=== PATIENT | female | born 1985 | race Two or more races ===

== ENCOUNTER 2018-05-05 19:53 | Inpatient (IN) | payer MEDICAID ==
[2018-05-05 19:53] VITALS: BMI 32.5
--- NOTE | 2018-05-05 20:36 | C.PDOC ---
History Of Present Illness 32 year old female presents to the ED requesting detox for alcohol abuse and ambien. Patient states her last drink was a couple of hours ago. Patient denies SI/HI, hallucinations, trauma, injury, fall. Time Seen by Provider: 05/05/18 20:36 Chief Complaint (Nursing): Substance Abuse History Per: Patient History/Exam Limitations: intoxication Onset/Duration Of Symptoms: Days Current Symptoms Are (Timing): Still Present Modifying Factor(s): Alcohol, Other (Ambien) Associated Symptoms: denies: Depression, Suicidal Thoughts, Suicidal Plan Recent travel outside of the [place]: No Additional History Per: Patient Past Medical History Reviewed: Historical Data, Nursing Documentation, Vital Signs Vital Signs: Last Vital Signs Temp 99.3 F 05/05/18 20:15 Pulse 103 H 05/05/18 20:15 Resp 20 05/05/18 20:15 BP 139/93 H 05/05/18 20:15 Pulse Ox 99 05/05/18 20:43 - Medical History PMH: No Chronic Diseases Denies: Depression, Pancreatitis, Chronic Kidney Disease Surgical History: Cholecystectomy - [facility] Procedures DRAINAGE OF BACK SUBCU/FASCIA WITH DRAIN DEV, OPEN APPROACH (10/12/16) DRAINAGE OF LEFT HIP MUSCLE WITH DRAIN DEV, OPEN APPROACH (10/12/16) DRAINAGE OF RIGHT HIP MUSCLE WITH DRAIN DEV, OPEN APPROACH (10/12/16) INJECT/INFUSE NEC (09/12/12) PLAIN RADIOGRAPHY OF HEPATOBIL SYS, ALL USING L OSM CONTRAST (11/07/15) RESECTION OF GALLBLADDER, PERCUTANEOUS ENDOSCOPIC APPROACH (11/07/15) TRANSFUSE NONAUT FROZEN PLASMA IN PERIPH VEIN, PERC (10/12/16) TRANSFUSE NONAUT RED BLOOD CELLS IN PERIPH VEIN, PERC (10/12/16) Family History: States: Unknown Family Hx - Social History Hx Tobacco Use: Yes Hx Alcohol Use: Yes Hx Substance Use: No - Immunization History Hx Tetanus Toxoid Vaccination: No Hx Influenza Vaccination: No Hx Pneumococcal Vaccination: No Review Of Systems Constitutional: Negative for: Fever, Chills Cardiovascular: Negative for: Chest Pain Respiratory: Negative for: Cough, Shortness of Breath Gastrointestinal: Negative for: Nausea, Vomiting Skin: Negative for: Rash Neurological: Negative for: Weakness, Numbness Psych: Negative for: Depression, Suicidal ideation Physical Exam - Physical Exam Appears: Non-toxic, No Acute Distress Skin: Warm, Dry Head: Normacephalic Eye(s): bilateral: Normal Inspection Neck: Supple Chest: Symmetrical Cardiovascular: Rhythm Regular Respiratory: No Rales, No Rhonchi, No Wheezing Gastrointestinal/Abdominal: Soft, No Tenderness, No Guarding, No Rebound Back: Normal Inspection Extremity: No Tenderness, No Swelling Extremity: Bilateral: Atraumatic, Normal Color And Temperature, Normal ROM Neurological/Psych: Oriented x3, Normal Speech Gait: Steady ED Course And Treatment - Laboratory Results Result Diagrams: 05/05/18 20:59 05/05/18 20:59 O2 Sat by Pulse Oximetry: 99 (ON RA) Pulse Ox Interpretation: Normal Progress Note: Plan: - Labs. - UA. - Crisis evaluation Disposition Discussed With Dr.: Maicol Galan Comment: accepted the pt onhis service and took over the care at 10:08PM Doctor Will See Patient In The: Hospital Counseled Patient/Family Regarding: Studies Performed, Diagnosis - Disposition Disposition: HOSPITALIZED Disposition Time: 20:36 Condition: FAIR Forms: [facility] ([place]) - POA Present On Arrival: None - Clinical Impression Clinical Impression: Alcohol abuse - Scribe Statement The provider has reviewed the documentation as recorded by the Scribe Jose Bravo All medical record entries made by the Scribe were at my direction and personally dictated by me. I have reviewed the chart and agree that the record accurately reflects my personal performance of the history, physical exam, medical decision making, and the department course for this patient. I have also personally directed, reviewed, and agree with the discharge instructions and disposition. Decision To Admit - Pt Status Changed To: Hospital Disposition Of: Inpatient - Admit Certification Admit to Inpatient:: After my assessment, the patient will require hospitalization for at least two midnights. This is because of the severity of symptoms shown, intensity of services needed, and/or the medical risk in this patient being treated as an outpatient. - InPatient: Physician Admission Certification: I certify that this patient requires 2 or more midnights of care for the following reason:: After my assessment, the patient will require hospitalization for at least two midnights. This is because of the severity of symptoms shown, intensity of services needed, and/or the medical risk in this patient being treated as an outpatient. - . Bed Request Type: Detox Admitting Physician: Maicol Galan Patient Diagnosis: Alcohol abuse, Major depressive disorder, recurrent, unspecified
[2018-05-05 21:07] LABS: BASO % 0.6 % (0.0-2.0); EOS % 0.4 % (0.0-4.0); HEMOGLOBIN 15.1 g/dL (11.0-16.0); LYMPH # 1.8 K/uL (1.0-4.3); MEAN CELL VOLUME 99.8 fL (81.0-99.0); MEAN CORPUSCULAR HGB CONC 35.1 g/dL (33.0-37.0); MEAN PLATELET VOLUME 8.6 fL (7.2-11.7); MONO # 0.4 K/uL (0.0-0.8); MONO % 7.9 % (0.0-10.0); NEUT # 3.2 K/uL (1.8-7.0); NEUT % 58.1 % (50.0-75.0); NRBC % 0.1 % (0.0-2.0); RBC 4.31 Mil/uL (3.80-5.20); RED CELL DISTRIBUTION WIDTH 13.4 % (11.5-14.5); WHITE BLOOD COUNT 5.6 K/uL (4.8-10.8)
[2018-05-05 21:10] LABS: HCG,QUALITATIVE URINE NEGATIVE (NEGATIVE)
[2018-05-05 21:22] LABS: ALB/GLOB RATIO 1.3 (1.0-2.1); ALBUMIN 4.8 g/dL (3.5-5.0); ALT/SGPT 90 U/L (9-52); AST/SGOT 140 U/L (14-36); BLOOD UREA NITROGEN 20 mg/dL (7-17); CALCIUM 10.2 mg/dl (8.6-10.4); GFR NON-AFRICAN AMERICAN > 60
[2018-05-05 21:24] LABS: SQUAMOUS EPITHIAL 12 /hpf (0-5); URINE BACTERIA MANY (<OCC); URINE BILIRUBIN 1+ (NEGATIVE); URINE BLOOD 3+ (NEGATIVE); URINE CLARITY Hazy (Clear); URINE COLOR Amber (YELLOW); URINE GLUCOSE (UA) NORMAL (Normal); URINE LEUKOCYTE ESTERASE 1+ Leu/uL (Negative); URINE PROTEIN 2+ mg/dL (NEGATIVE)
[2018-05-05 21:27] LABS: BARBITURATES, UR NEGATIVE (NEGATIVE); BENZODIAZEPINES, UR NEGATIVE (NEGATIVE); OPIATES, UR NEGATIVE (NEGATIVE); PHENCYCLIDINE, UR NEGATIVE (NEGATIVE)
--- NOTE | 2018-05-05 22:35 | PCM.BM ---
<Tino Velasco - Last Filed: 05/05/18 22:33> Treatment Plan Problems - Problems identified on initial assessmt potential for alcohol withdrawal Date Initiated: 05/05/18 Time Initiated: 22:34 Status: Active Treatment assets and liabiliti Patient Liabilities: substance abuse - Milieu Protocol Maintain good personal hygiene: daily Encourage regular showers, daily Remind patient to perform daily oral care, daily Assist patient to perform ADL's Conduct patient checks and document Observation sheet: Q15 minutes Maintain personal safety: every shift Educate patient to report safety concerns to staff, every shift Monitor environment for contraband/sharps Medication safety: Monitor for expected outcome, potential side effects: every shift, Assess barriers to learning: every shift, Assess readiness for medication education: every shift <Margarito Jiménez - Last Filed: 05/06/18 10:36> - Diagnosis (1) Alcohol use disorder, severe, dependence Status: Acute Interventions: 05/06/18 10:37 * Assess 7x/week regarding severity of withdrawal * Educate regarding risks, benefits, side effects and alternatives of medications * Use Motivational Interviewing for abstinence * Use CBT for relapse prevention * Medication management for withdrawal symptoms * Encourage medication assisted treatment * (2) Major depressive disorder, recurrent, unspecified Status: Acute Interventions: 05/06/18 10:37 * Assess/adjust medications daily and /or as needed * See patient on an individual basis 7x/week to assess symptoms of depression * Monitor for side effects & effectiveness of medications * <Amee Reynolds - Last Filed: 05/06/18 11:07> Family Contact Family involvement: Famliy/SO not involved - Goals for Treatment Patient goals for treatment: Complete detox and transition to inpatient rehab. Discharge/Continuing Care - Education Needs Education Needs: Patient Medication, Patient Diagnosis/Disease Process, Patient Coping Skills, Patient Anger Management skills, Patient Placement options, Patient Community resources - Discharge Discharge Criteria: No longer exhibiting s/s of withdrawal, Reduction of target symptoms Discharge to:: Substance Abuse Rehab - Treatment Team Participation Patient/Family/SO Statement: 05/06/18 11:06 "I need to go to rehab from here." Discussed with Family/SO: No Was Patient/Family/SO present at Treatment Team Meeting: Yes
[2018-05-06] MEDS ORDERED: Aluminum Hydroxide/Magnesium Hydroxide Susp (30 mL) PO PRN (01:09)
[2018-05-06] MEDS: Multiple Vitamins Tab PO SCH (09:47)
[2018-05-06] MEDS: Pantoprazole 20 mg EC Tab PO SCH (10:27)
--- NOTE | 2018-05-06 10:36 | PCM.PSYCH ---
Initial Psychiatric Evaluation - Initial Psychiatric Evaluation Type of Admission: Voluntary Legal Status: Capacity Chief Complaint (in patient's own words): "I need help real bad" History of Present Illness and Precipitating Events: Pt is a 32 year old female who is single, has no children, and lives in an apartment alone. 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 She is currently not employed. Pt is presenting for alcohol detoxification. She states that she drinks on average 2 pints - fifth/day on average of vodka. She denies drinking beer or wine. She states that she consumed alcohol intermittently until 2016, when she started to have problem drinking, and around September of this year, her drinking has become daily and heavier. She states that her frequency of drinking increasing during then may be because her family is moving out of [place]. She says that she would have no social support after this, and it made her feel depressed and lonely. She has been drinking alcohol since her teens. This is her first time for detoxification. She denies prior detoxificaiton, rehabs, or AA. She denies taking any craving medications. She occasionally smokes marijuana and rarely has used cigarettes. She denies any other drug usage. She is complaining of shaking, nausea and "burping acid." She denies seizures, GI bleed. She had very significant wdw sxs bordering on DT though. She had pancreatitis and currently still has pain and nausea. Psych Hx: She saw a psychiatrist, was diagnosed with depression and anxiety. She was given Ambien and Klonopin. She denies manic episodes. She denies SI/HI now. Traumatic history: Father in 2003. Medical Hx: Cholecystectomy secondary to pancreatitis in June 2017. Gastric sleeve in 2012 Current Medications: Active Medications Generic Name Dose Route Start Last Admin Trade Name Freq PRN Reason Stop Dose Admin Al Hydrox/Mg Hydrox/Simethicone 30 ml 05/06/18 01:09 05/06/18 06:40 Maalox 30 Ml PO 30 ml Q8 PRN Administration Indigestion / Heartburn Clonidine HCl 0.1 mg 05/06/18 00:19 Catapres PO Q4H PRN Symptoms of alcohol withdrawl Folic Acid 1 mg 05/06/18 10:00 05/06/18 09:46 Folic Acid PO Not Given DAILY DONNA Gabapentin 100 mg 05/06/18 10:00 05/06/18 09:38 Neurontin PO 100 mg TID DONNA Administration Lorazepam 1 mg 05/06/18 00:25 05/06/18 01:31 Ativan PO 1 mg Q4H PRN Administration Symptoms of alcohol withdrawl Lorazepam 2 mg 05/06/18 10:00 05/06/18 09:38 Ativan PO 05/11/18 09:59 2 mg Q6H DONNA Administration Taper Multivitamins 1 tab 05/06/18 10:00 05/06/18 09:47 Hexavitamin PO Not Given DAILY DONNA Pantoprazole Sodium 20 mg 05/06/18 10:30 05/06/18 10:27 Protonix Ec Tab PO 20 mg DAILY DONNA Administration Thiamine HCl 100 mg 05/06/18 10:00 05/06/18 09:47 Vitamin B1 Tab PO Not Given DAILY DONNA Trazodone HCl 100 mg 05/06/18 10:26 Desyrel PO HS PRN Insomnia Past Psychiatric History - Past Psychiatric History Previous Treatment History: Intensive Outpatient Pertinent Medical Hx (Current Medical&Sleep Prob, Allergies): Allergies Allergy/AdvReac Type Severity Reaction Status Date / Time Penicillins Allergy RASH Verified 05/09/16 08:29 Magnesium Oxide [Magnesium] 400 mg PO BID #10 tablet 05/13/16 Linezolid 600 mg PO BID #20 tablet 10/23/16 Naproxen 500 mg PO BID #30 tab 10/23/16 Famotidine [Pepcid] 20 mg PO BID #20 tab 03/15/18 Simethicone [Gas Relief] 80 mg PO QID PRN #40 tab.chew 03/16/18 Review of Systems - Psychiatric Psychiatric: Abnormal Sleep Pattern, Anhedonia, Anxiety, Depression, Difficulty Concentrating, Mood Swings. absent: Hallucinations, Homicidal Ideation, Paranoia, Suicidal Ideation Mental Status Examination - Personal Presentation Personal Presentation: Looks stated age - Affect Affect: Constricted - Motor Activity Motor Activity: Calm - Reliability in Providing Information Reliability in Providing Information: Good - Speech Speech: Organized - Mood Mood: Depressed, Anxious - Formal Thought Process Formal Thought Process: No Impairment - Cognitive Functions Orientation: Person, Place, Situation, Time Sensorium: Alert Attention/Concentration: Attentive Estimate of Intelligence: Average Judgement: Intact, as evidence by: Insight regarding need for hospitalization Memory: Recent intact, as evidence by: Ability to recall events of the day, Remote intact, as evidenced by: Abilit to recall sig. life events - Risk Risk: Withdrawal, Diminished functioning - Strength & Assets Inventory Strength & Assets Inventory: Employment history, Cooperative - Limitations Limitations: Living alone DSM 5 DX - DSM 5 DSM 5 Diagnosis: Alcohol withdrawal Alcohol use d/o - severe Major depression, single, moderate SUZANNE - Recommended/Plan of Treatment Treatment Recommendations and Plan of Treatment: Taper with Ativan Labs Gabapentin for augmentation and anxiety Topamax for cravings Lexapro for depression, anxiety d/o As needed medications All risks, benefits and alternatives of the meds discussed, and the pt agreed and understood. Attend groups and activities Supportive therapy and psychoeducation MN for abstinence CBT for relapse prevention Encourage MAT Refer to rehab or IOP, and self-help groups Smoking cessation with MN Nicotine patch if needed 35 mn Projected ELOS: 5 days Prognosis: good w treatment - Smoking Cessation Smoking Cessation Initiated: Yes
[2018-05-06 14:05] VITALS: RESP 18
[2018-05-06] MEDS ORDERED: Vitamins A & D Oint UD Foilpak TOP PRN (19:17)
[2018-05-07] MEDS: Pantoprazole 20 mg EC Tab PO SCH (09:27)
[2018-05-07] MEDS: Multiple Vitamins Tab PO SCH (09:27)
[2018-05-07 11:49] LABS: ALB/GLOB RATIO 1.2 (1.0-2.1); ALBUMIN 3.9 g/dL (3.5-5.0); BILIRUBIN,DIRECT 0.9 mg/dL (0.0-0.4)
[2018-05-07] MEDS ORDERED: Pantoprazole 20 mg EC Tab PO ONE (13:45)
--- NOTE | 2018-05-07 14:22 | PCM.PYCHPN ---
Psychiatric Progress Note - Psychiatric Progress Note Patient seen today, length of contact: 20 min Patient Chief Complaint: "I am a little better but have pain" Problems Identified/Issues Discussed: The pt is seen, chart reviewed, case discussed with staff. The pt is compliant with medications and reports no side-effects. Symptoms are improving but needs more time to stabilize. Has abdom. pain, no NV, not severe Amee and Lip checked, some increase She will decrease eating, Protonix and Ultram prn started Consult as needed UTI treatment also started Pt attends few groups and activities. Support given, psycho-education provided. After care discussed. Medication Change: Yes (detox changes daily) Medical Record Reviewed: Yes Mental Status Examination - Cognitive Function Orientation: Person, Place, Situation, Time Memory: Intact Attention: WNL Concentration: Poor Association: WNL Fund of Knowledge: WNL - Mood Mood: Depressed, Anxious - Affect Affect: Constricted - Speech Speech: Appropriate - Formal Thought Process Formal Thought Process: No Impairment - Suicidal Ideation Suicidal Ideation: No - Homicidal Ideation Homicidal Ideation: No Goal/Treatment Plan - Goal/Treatment Plan Need for Continued Stay: Discharge may exacerbated symptoms Progress Toward Problem(s) and Goals/Treatment Plan: Taper with Ativan Labs Gabapentin for augmentation and anxiety Topamax for cravings Lexapro for depression, anxiety d/o As needed medications All risks, benefits and alternatives of the meds discussed, and the pt agreed and understood. Attend groups and activities Supportive therapy and psychoeducation NE for abstinence CBT for relapse prevention Encourage MAT Refer to rehab or IOP, and self-help groups Smoking cessation with NE Nicotine patch if needed Estimated Date of D/C: 05/10/18
[2018-05-08] MEDS: Pantoprazole 40 mg EC Tab PO SCH (10:57)
[2018-05-08] MEDS: Multiple Vitamins Tab PO SCH (10:59)
--- NOTE | 2018-05-08 14:24 | PCM.PYCHPN ---
Psychiatric Progress Note - Psychiatric Progress Note Patient seen today, length of contact: 17 min Patient Chief Complaint: "I still have pain" Problems Identified/Issues Discussed: The pt is seen, chart reviewed, case discussed with staff. The pt is compliant with medications and reports no side-effects. Symptoms are improving but needs more time to stabilize. Still has abdom pain but not tender, no rebound Lipase decreased. Abx started Support and psychoeducation given. Medication Change: Yes (detox changes daily) Medical Record Reviewed: Yes Mental Status Examination - Cognitive Function Orientation: Person, Place, Situation, Time Memory: Intact Attention: WNL Concentration: Poor Association: WNL Fund of Knowledge: WNL - Mood Mood: Depressed, Anxious - Affect Affect: Constricted - Speech Speech: Appropriate - Formal Thought Process Formal Thought Process: No Impairment - Suicidal Ideation Suicidal Ideation: No - Homicidal Ideation Homicidal Ideation: No Goal/Treatment Plan - Goal/Treatment Plan Need for Continued Stay: Discharge may exacerbated symptoms Progress Toward Problem(s) and Goals/Treatment Plan: Taper with Ativan Labs Gabapentin for augmentation and anxiety Topamax for cravings Lexapro for depression, anxiety d/o As needed medications All risks, benefits and alternatives of the meds discussed, and the pt agreed and understood. Attend groups and activities Supportive therapy and psychoeducation PR for abstinence CBT for relapse prevention Encourage MAT Refer to rehab or IOP, and self-help groups Smoking cessation with PR Nicotine patch if needed Estimated Date of D/C: 05/10/18
[2018-05-08 14:39] LABS: ALB/GLOB RATIO 1.2 (1.0-2.1); ALBUMIN 4.2 g/dL (3.5-5.0); ALT/SGPT 98 U/L (9-52); AMYLASE 108 U/L (30-110); AST/SGOT 143 U/L (14-36); BLOOD UREA NITROGEN 16 mg/dL (7-17); CALCIUM 9.7 mg/dl (8.6-10.4); GFR NON-AFRICAN AMERICAN > 60; LIPASE 368 U/L (23-300)
[2018-05-09] MEDS: Multiple Vitamins Tab PO SCH (09:15)
[2018-05-09] MEDS: Pantoprazole 40 mg EC Tab PO SCH (09:15)
--- NOTE | 2018-05-09 11:52 | PCM.PYCHPN ---
Psychiatric Progress Note - Psychiatric Progress Note Patient seen today, length of contact: 16 min Patient Chief Complaint: "I am a little better" Problems Identified/Issues Discussed: The pt is seen, chart reviewed, case discussed with staff. Support and psychoeducation given, CBT and NC used briefly No new symptoms reported, improving slowly and needs more time Lipase decrease again, has less pain and less UTI sxs How to deal with remaining sxs discussed No SEs from medications, risks discussed. After care discussed Medication Change: Yes (detox changes daily) Medical Record Reviewed: Yes Mental Status Examination - Cognitive Function Orientation: Person, Place, Situation, Time Memory: Intact Attention: WNL Concentration: Poor Association: WNL Fund of Knowledge: WNL - Mood Mood: Depressed, Anxious - Affect Affect: Constricted - Speech Speech: Appropriate - Formal Thought Process Formal Thought Process: No Impairment - Suicidal Ideation Suicidal Ideation: No - Homicidal Ideation Homicidal Ideation: No Goal/Treatment Plan - Goal/Treatment Plan Need for Continued Stay: Discharge may exacerbated symptoms, Severe functional impairment Progress Toward Problem(s) and Goals/Treatment Plan: Taper with Ativan Labs Gabapentin for augmentation and anxiety Topamax for cravings Lexapro for depression, anxiety d/o As needed medications All risks, benefits and alternatives of the meds discussed, and the pt agreed and understood. Attend groups and activities Supportive therapy and psychoeducation NC for abstinence CBT for relapse prevention Encourage MAT Refer to rehab or IOP, and self-help groups Smoking cessation with NC Nicotine patch if needed Estimated Date of D/C: 05/10/18
[2018-05-09 16:47] VITALS: O2SAT 100
[2018-05-10] MEDS: Multiple Vitamins Tab PO SCH (09:12)
[2018-05-10] MEDS: Pantoprazole 40 mg EC Tab PO SCH (09:12)
[2018-05-10 10:26] VITALS: BP 117/82; PULSE 103; TEMP 98.5
--- NOTE | 2018-05-10 13:11 | PCM.PYCHDC ---
Mental Status Examination - Mental Status Examination Orientation: Person, Place, Situation, Time Memory: Intact Mood: Neutral Affect: Other (Appropriate) Speech: Appropriate Attention: WNL Concentration: WNL Association: WNL Fund of Knowledge: WNL Formal Thought Process: No Impairment Description of patient's judgement and insight: Fair Psychotic Thoughts and Behaviors: None Suicidal Ideation: No Current Homicidal Ideation?: No Discharge Summary - Discharge Note Reason for Hospitalization: Alcohol use disorder severe Major depressive disorder moderate SUZANNE Laboratory Data: Abnormal Lab Results 05/09/18 13:39 Lipase 344 H Review Consultations:: List each consultation separately and include: 1. Reason for request. 2. Findings. 3. Follow-up Summary of Hospital Course include:: 1. Description of specific treatment plan utilized for patients during their course of treatmen. 2. Summarize the time- course for resolution of acute symptoms and/or regressed behaviors. 3. Describe issues identified and worked on during hospitalization. 4. Describe medication utilized. 5. Describe medical problems identified and treated. 6. Reassessment of suicide risk Summary of Hospital Course: Pt is a 32 year old female who is single, has no children, and lives in an apartment alone. 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 She is currently not employed. Pt is presenting for alcohol detoxification. She states that she drinks on average 2 pints - fifth/day on average of vodka. She denies drinking beer or wine. She states that she consumed alcohol intermittently until 2016, when she started to have problem drinking, and around September of this year, her drinking has become daily and heavier. She states that her frequency of drinking increasing during then may be because her family is moving out of [place]. She says that she would have no social support after this, and it made her feel depressed and lonely. She has been drinking alcohol since her teens. This is her first time for detoxification. She denies prior detoxificaiton, rehabs, or AA. She denies taking any craving medications. She occasionally smokes marijuana and rarely has used cigarettes. She denies any other drug usage. She is complaining of shaking, nausea and "burping acid." She denies seizures, GI bleed. She had very significant wdw sxs bordering on DT though. She had pancreatitis and currently still has pain and nausea. Psych Hx: She saw a psychiatrist, was diagnosed with depression and anxiety. She was given Ambien and Klonopin. She denies manic episodes. She denies SI/HI now. Traumatic history: Father in 2003. Medical Hx: Cholecystectomy secondary to pancreatitis in June 2017. Gastric sleeve in 2012. During her stay in the hospital patient was treated with Ativan taper for alcohol withdrawal symptoms due to elevated liver function test. Patient was also started on other when necessary medications. With the above treatment and attending groups on the unit, patient started feeling better. Today patient was stable and ready for discharge. At the time of evaluation and discharge, patient was awake alert oriented 3, had no delusions, and no suicidal ideation or homicidal ideations. Patient was discharged in a stable condition. [facility] after discharge from the hospital. - Final Diagnosis (DSM 5) Condition upon Discharge: FAIR Disposition: HOME/ ROUTINE Prescriptions/Medication Reconciliation: Escitalopram [Lexapro] 10 mg PO DAILY #30 tab Gabapentin [Neurontin] 100 mg PO TID #90 cap Multivitamins [Hexavitamin] 1 tab PO DAILY #30 tab Nitrofurantoin Macrocrystals [Macrobid] 100 mg PO Q12H #10 cap Pantoprazole [Protonix EC Tab] 40 mg PO DAILY #30 ect Topiramate [Topamax] 25 mg PO BID #60 tab traZODone [Desyrel] 100 mg PO HS PRN #30 tab PRN Reason: Insomnia - Smoking Cessation Smoking Cessation Medication prescribed: No - Antipsychotic Medications Pt discharged on 2 or more routine antipsychotic medications: No
== END 2018-05-10 10:30 | disposition home or self-care (01) | DRG 750 ==
LOC: C.ER 19:53 → C.7D 22:10
PROVIDERS: ADMIT Psychiatry & Neurology Psychiatry; ATTEND Psychiatry & Neurology Psychiatry
PROC: HZ2ZZZZ Detoxification Services for Substance Abuse Treatment (ICD-10-PCS; principal; 2018-05-05)
PROC: HZ52ZZZ Individual Psychotherapy for Substance Abuse Treatment, Cognitive-Behavioral (ICD-10-PCS; 2018-05-05)
PROC: HZ59ZZZ Individual Psychotherapy for Substance Abuse Treatment, Supportive (ICD-10-PCS; 2018-05-05)
PROC: HZ56ZZZ Individual Psychotherapy for Substance Abuse Treatment, Psychoeducation (ICD-10-PCS; 2018-05-05)
PROC: HZ42ZZZ Group Counseling for Substance Abuse Treatment, Cognitive-Behavioral (ICD-10-PCS; 2018-05-05)
PROC: HZ46ZZZ Group Counseling for Substance Abuse Treatment, Psychoeducation (ICD-10-PCS; 2018-05-05)
PROC: GZHZZZZ Group Psychotherapy (ICD-10-PCS; 2018-05-05)
PROC: GZ58ZZZ Individual Psychotherapy, Cognitive-Behavioral (ICD-10-PCS; 2018-05-05)
PROC: GZ56ZZZ Individual Psychotherapy, Supportive (ICD-10-PCS; 2018-05-05)
DX: F10.230 Alcohol dependence with withdrawal, uncomplicated (principal); F33.1 Major depressive disorder, recurrent, moderate; N39.0 Urinary tract infection, site not specified; Y90.0 Blood alcohol level of less than 20 mg/100 ml; F41.1 Generalized anxiety disorder